=== PATIENT | male | born 1945 | race Caucasian/White ===

== ENCOUNTER 2022-08-13 15:49 | Emergency (ER) | payer OTHER, SELFPAY ==
[2022-08-13 16:12] VITALS: BP 141/87; PULSE 78; RESP 16; TEMP 36.9; O2SAT 100
[2022-08-13 16:30] LABS: Basophils Absolute Auto 0.1 K/mm3 (0.0-0.1); Basophils Percent Auto 0.6 % (0.2-1.2); Eosinophils Absolute Auto 0.1 K/mm3 (0-0.3); Eosinophils Percent Auto 0.7 % (0-4.4); Hematocrit 45.7 % (42.0-52.0); Hemoglobin 14.3 g/dL (14.0-18.0); Immature Granulocyte Absolute 0.06 K/mm3 (0.00-0.031); Immature Granulocyte Percent A 0.7 % (0-0.5); Lymphocytes Absolute Auto 1.85 K/mm3 (0.9-3.2); Lymphocytes Percent Auto 22.2 % (18.3-44.2); Mean Corpuscular HGB Conc 31.3 g/dl (32-36); Mean Corpuscular Hemoglobin 28.4 pg (26-34); Mean Corpuscular Volume 90.7 fl (80-100); Mean Platelet Volume 9.6 fl (7.4-10.4); Monocytes Absolute Auto 0.7 K/mm3 (0.1-0.6); Monocytes Percent Auto 8.5 % (2.6-8.5); Neutrophils Absolute Auto 5.6 K/mm3 (1.3-6.7); Neutrophils Percent Auto 67.3 % (45.5-73.1); Platelet Count Result 314 k/mm3 (150-375); Red Blood Count 5.04 M/mm3 (4.6-6.20); Red Cell Distribution Width 15.9 % (11.5-14.5); White Blood Count 8.3 K/mm3 (4.5-10.0)
[2022-08-13 16:44] LABS: Alanine Aminotransferase 24 U/L (6-50); Albumin Level 4.4 g/dL (3.5-5.1); Alkaline Phosphatase 52 U/L (38-126); Anion Gap 10 mmol/L (8-16); Aspartate Amino Transferase 36 U/L (17-59); Bilirubin,Total 0.4 mg/dL (0.2-1.3); Blood Urea Nitrogen 16 mg/dL (9-20); Calcium 8.8 mg/dL (8.4-10.2); Carbon Dioxide 27 mmol/L (22-30); Chloride 106 mmol/L (98-107); Estimated CRCL calculation 57 ml/min; Estimated Glomerular Filt Rate > 60; Glucose 93 mg/dL (65-110); Lipase 144 U/L (23-300); Potassium 4.9 mmol/L (3.4-5.0); Sodium 143 mmol/L (137-145)
[2022-08-13 20:26] LABS: Add Urine Microscopic? YES; Appearance Urine Clear (Clear); Bilirubin Urine Negative (Negative); Blood Urine Negative (Negative); Color Urine Yellow (Yellow); Glucose Urine UA Negative (Negative); Ketones Urine Negative (Negative); Leukocyte Esterase Ur Negative LEU/UL (Negative); Mucus Urine Rare /lpf; Nitrate Urine Negative (Negative); Protein Urine Negative (Negative); RBC Urine 0-2 /hpf (0-2); WBC Urine 0-3 /hpf
--- NOTE | 2022-08-13 20:44 | ED.ABDPAIN ---
HPI - Abdominal Pain General Chief Complaint: Abdominal Pain Stated Complaint: white bowel movements Time Seen by Provider: 08/13/22 20:04 Source: patient Mode of arrival: ambulatory Limitations: no limitations History of Present Illness HPI narrative: Harika presents complaints of changing color of his stool over the last 4 days. States stool has been white in color and is unsure of the reason why. He denies abdominal pain currently and states he is doing well aside from changing stool color. Denies nausea, vomiting, fever or other complaints at this time. He is alert and very active in the room and appears to be in no distress. Review of Systems Review of Systems: CONSTITUTIONAL: Denies fever, chills, or sweats. EYES: Denies visual changes, redness, or discharge. ENT: Denies rhinorrhea, congestion, sore throat, or otalgia. CARDIOVASCULAR: Denies chest pain, palpitations, or edema. RESPIRATORY: Denies cough or dyspnea. GASTROINTESTINAL: Denies abdominal pain, nausea, vomiting, or diarrhea. Change in the color of stool GENITOURINARY: Denies dysuria or hematuria. SKIN: Denies rash or itching. MUSCULOSKELETAL: Denies back pain, joint pain, or myalgia. NEUROLOGIC: Denies headache, numbness, or weakness. PSYCHIATRIC: Denies anxiety or depression. Exam Narrative: GENERAL: Well-appearing, well-nourished, and in no acute distress. HEAD: Normocephalic, atraumatic. EYES: PERRLA and EOMI. ENT: Nares clear, no rhinorrhea or epistaxis. Mucous membranes moist. NECK: Supple. CHEST: Clear to auscultation. No respiratory distress. HEART: Regular rate and rhythm. No murmur heard. Normal peripheral pulses. ABDOMEN: Soft, nontender, nondistended, normal active bowel sounds. EXTREMITIES: Normal range of motion. No edema. SKIN: Warm, dry, no rash. NEURO: No focal deficits. Alert and oriented x3. PSYCH: Normal mood and affect. Course Vital Signs Vital signs: Vital Signs Temperature 36.9 C 08/13/22 16:12 Pulse Rate 78 08/13/22 16:12 Respiratory Rate 16 08/13/22 16:12 Blood Pressure 141/87 H 08/13/22 16:12 Pulse Oximetry 100 08/13/22 16:12 Oxygen Delivery Room Air 08/13/22 16:12 Temperature 36.9 C 08/13/22 16:12 Pulse Rate 78 08/13/22 16:12 Respiratory Rate 16 08/13/22 16:12 Blood Pressure 141/87 H 08/13/22 16:12 Pulse Oximetry 100 08/13/22 16:12 Oxygen Delivery Room Air 08/13/22 16:12 MDM - Abdominal Pain Lab Data Result diagrams: 08/13/22 16:20 08/13/22 16:20 Labs: Lab Results 08/13/22 08/13/22 08/13/22 Range/Units 16:20 16:20 20:17 WBC 8.3 (4.5-10.0) K/mm3 RBC 5.04 (4.6-6.20) M/mm3 Hgb 14.3 (14.0-18.0) g/dL Hct 45.7 (42.0-52.0) % MCV 90.7 (80-100) fl MCH 28.4 (26-34) pg MCHC 31.3 L (32-36) g/dl RDW 15.9 H (11.5-14.5) % Plt Count 314 (150-375) k/mm3 MPV 9.6 (7.4-10.4) fl Immature Gran % (Auto) 0.7 H (0-0.5) % Neut % (Auto) 67.3 (45.5-73.1) % Lymph % (Auto) 22.2 (18.3-44.2) % [place] % (Auto) 8.5 (2.6-8.5) % Eos % (Auto) 0.7 (0-4.4) % Baso % (Auto) 0.6 (0.2-1.2) % Lymph # (Auto) 1.85 (0.9-3.2) K/mm3 [place] # (Auto) 0.7 H (0.1-0.6) K/mm3 Eos # (Auto) 0.1 (0-0.3) K/mm3 Baso # (Auto) 0.1 (0.0-0.1) K/mm3 Abs Immat Gran (auto) 0.06 H (0.00-0.031) K/mm3 Absolute Neuts (auto) 5.6 (1.3-6.7) K/mm3 Absolute Nucleated RBC 0.0 (0.0-0.012) K/mm3 Nucleated RBC % 0.0 (0.0-0.2) % Sodium 143 (137-145) mmol/L Potassium 4.9 (3.4-5.0) mmol/L Chloride 106 (98-107) mmol/L Carbon Dioxide 27 (22-30) mmol/L Anion Gap 10 (8-16) mmol/L BUN 16 (9-20) mg/dL Creatinine 1.00 (0.7-1.3) mg/dL Estim Creat Clear Calc 57 ml/min Estimated GFR > 60 (59 - ) Glucose 93 (65-110) mg/dL Calcium 8.8 (8.4-10.2) mg/dL Total Bilirubin 0.4 (0.2-1.3) mg/dL AST 36 (17-59) U/L ALT 24 (6-50) U/L Alkaline Phospha
== END 2022-08-13 21:24 | disposition home or self-care (01) ==
PROVIDERS: Emergency Medicine; Emergency Provider Nurse Practitioner
DX: R19.5 Other fecal abnormalities (principal)
CPT/HCPCS: 36415; 80053; 81001; 83690; 85025; 99283

== ENCOUNTER 2022-11-24 14:50 | Emergency (ER) | payer OTHER, SELFPAY ==
--- NOTE | ~2022-11-24 | XR_ITS ---
EXAMINATION: XR chest 2V DATE: 11/24/2022 15:43 INDICATION: Cough and shortness of breath TECHNIQUE: PA and lateral views of the chest are obtained. COMPARISON: None available FINDINGS: The lungs are free of acute opacities. No pleural effusion or pneumothorax. The cardiomedia stinal silhouette is normal. There is moderate thoracic spondylosis. IMPRESSION: 1. No acute cardiopulmonary abnormality. 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
--- NOTE | ~2022-11-24 | XR_ITS ---
EXAM: XR wrist RT min 3V DATE: 11/24/2022 15:43 HISTORY: redness and swelling . COMPARISON: None available. FINDINGS: Decreased mineralization. Old ulnar styloid fracture fragments. No acute fracture or dislo cation. No lytic or blastic lesion. Scattered degenerative changes. No erosion or periosteal change. Mild soft tissue swelling about the wrist. IMPRESSION: No acute osseous finding in the right wrist. Reviewed, dictated and finalized at location K. 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
[2022-11-24 14:54] VITALS: BP 112/79; PULSE 79; RESP 18; TEMP 36.6; O2SAT 100
--- NOTE | 2022-11-24 15:12 | ECG_ITS ---
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
--- NOTE | 2022-11-24 15:15 | ED.EXTPRO ---
HPI - Extremity Problem General Chief complaint: Extremity Problem,Nontraumatic Stated complaint: arm pain Time Seen by Provider: 11/24/22 15:03 History of Present Illness HPI Narrative: 76-year-old male with history of arthritis here for evaluation of bilateral wrist pain for the past day. Patient states that he got up and he noticed that his right wrist was swollen, red and he had difficulty moving the wrist due to pain and stiffness. Also notes body aches all over. He also noticed a productive cough, chest discomfort and dyspnea over the past 3 days. States the pain is there when he lies down. No fevers or chills, nausea or vomiting. Has not taken a COVID test. He is a poor historian and is difficult oriented at times. Related Data Allergies Allergy/AdvReac Type Severity Reaction Status Date / Time acetaminophen Allergy Vomiting Verified 11/24/22 15:58 ibuprofen Allergy Vomiting Verified 11/24/22 15:58 Review of Systems Review of Systems: Gen: Denies fevers or chills Eyes: Denies eye pain or visual change ENT: Denies congestion Respiratory: Reports shortness of breath and cough CV: Reports chest pain. Denies palpitations GI: Reports abdominal pain nausea, emesis or diarrhea denies burning, urgency, frequency or hematuria Musculoskeletal: Reports joint pain. Denies back pain or muscle pain Neuro: Denies numbness, tingling, weakness or focal weakness Skin: Denies rash 10 point review of systems negative, other than as per history of present illness, past medical history and other positives and review of systems Exam Narrative: APPEARANCE: Well appearing, no pain in distress, well-nourished. Head: Normocephalic and atraumatic. EYES: PERRLA/EOMI, conjunctivae clear NOSE: No nasal drainage EARS: External ear normal in appearance THROAT: Oropharynx is clear. Mucous membranes are moist. NECK: Supple. No adenopathy, no masses. RESPIRATORY: Airway patent, respirations nonlabored. Clear to auscultation bilaterally, no rales, rhonchi, wheezing. CARDIOVASCULAR: Regular rate and rhythm without murmurs, rubs, or gallops. ABDOMINAL: Normoactive bowel sounds. Soft, nontender, nondistended. No rebound tenderness or guarding. MUSCULOSKELETAL: Patient's distal ulna on the right is red and warm to palpation, he has no pain with range of motion. Full range of motion in fingers. He has some slight tenderness to the distal radius on the left, again has no pain with range of motion or obvious deformity noted. NEURO: Normal speech. No focal neurologic deficits. SKIN: Skin is warm and dry. No rashes. PSYCHIATRIC: Normal affect/mood.. Course Vital Signs Vital signs: Vital Signs Temperature 97.8 F 11/24/22 14:54 Pulse Rate 79 11/24/22 14:54 Respiratory Rate 18 11/24/22 14:54 Blood Pressure 112/79 11/24/22 14:54 Pulse Oximetry 100 11/24/22 14:54 Oxygen Delivery Room Air 11/24/22 14:54 Temperature 97.8 F 11/24/22 14:54 Pulse Rate 79 11/24/22 14:54 Respiratory Rate 18 11/24/22 14:54 Blood Pressure 112/79 11/24/22 14:54 Pulse Oximetry 100 11/24/22 14:54 Oxygen Delivery Room Air 11/24/22 14:54 MDM - Extremity (Nontraumatic) MDM Narrative Medical decision making narrative: 76-year-old male here for evaluation of multiple medical complaints, most notably some pain and redness in his right wrist. Exam and history not consistent with septic arthritis; likely flare-up of rheumatoid arthritis given presence of morning stiffness. Plain films are negative. He states he has an allergy to ibuprofen and Tylenol, was therefore given aspirin with improvement of his pain. He is also complaining of chest pain and shortness of breath, chest x-ray, EKG, troponin are reassuring. His COVID and flu test are negative. Heart score of 2. We will send home with steroids (possible gout component?) and pcp f/u; return precautions discussed and he voiced understanding. Lab Data 11/24/22 15:23
[2022-11-24 15:38] LABS: Basophils Absolute Auto 0.1 K/mm3 (0.0-0.1); Basophils Percent Auto 0.5 % (0.2-1.2); Eosinophils Absolute Auto 0.2 K/mm3 (0-0.3); Eosinophils Percent Auto 1.7 % (0-4.4); Hematocrit 44.8 % (42.0-52.0); Hemoglobin 14.5 g/dL (14.0-18.0); Immature Granulocyte Absolute 0.04 K/mm3 (0.00-0.031); Immature Granulocyte Percent A 0.4 % (0-0.5); Lymphocytes Absolute Auto 1.75 K/mm3 (0.9-3.2); Lymphocytes Percent Auto 18.1 % (18.3-44.2); Mean Corpuscular HGB Conc 32.4 g/dl (32-36); Mean Corpuscular Hemoglobin 28.3 pg (26-34); Mean Corpuscular Volume 87.3 fl (80-100); Mean Platelet Volume 9.8 fl (7.4-10.4); Monocytes Absolute Auto 1.3 K/mm3 (0.1-0.6); Monocytes Percent Auto 13.4 % (2.6-8.5); Neutrophils Absolute Auto 6.4 K/mm3 (1.3-6.7); Neutrophils Percent Auto 65.9 % (45.5-73.1); Platelet Count Result 320 k/mm3 (150-375); Red Blood Count 5.13 M/mm3 (4.6-6.20); Red Cell Distribution Width 13.5 % (11.5-14.5); White Blood Count 9.7 K/mm3 (4.5-10.0)
[2022-11-24 15:48] LABS: Chloride 104 mmol/L (98-107)
[2022-11-24 16:01] LABS: Troponin I < 0.012 ng/mL (0.000-0.034)
[2022-11-24] MEDS: ASPIRIN 325 MG TABLET PO (16:04)
[2022-11-24 16:12] LABS: Alanine Aminotransferase 22 U/L (6-50); Albumin Level 4.5 g/dL (3.5-5.1); Alkaline Phosphatase 65 U/L (38-126); Anion Gap 5 mmol/L (8-16); Aspartate Amino Transferase 29 U/L (17-59); Bilirubin,Total 0.8 mg/dL (0.2-1.3); Blood Urea Nitrogen 13 mg/dL (9-20); Carbon Dioxide 25 mmol/L (22-30); Estimated CRCL calculation 65 ml/min; Estimated Glomerular Filt Rate > 60; Glucose 98 mg/dL (65-110); Potassium 4.1 mmol/L (3.4-5.0); Sodium 134 mmol/L (137-145)
[2022-11-24 16:15] LABS: Influenza A QL RT-PCR Negative (Negative); Influenza B QL RT-PCR Negative (Negative); SARS-CoV-2 RNA PCR Negative
--- NOTE | 2022-11-25 13:11 | PCCCNOTE ---
[facility] notification called in due to no SSN in the system. Spoke with Camille, provided all details needed, Notification Reference: [id number]
== END 2022-11-24 17:02 | disposition home or self-care (01) ==
PROVIDERS: Emergency Provider Physician Assistant
DX: M19.031 Primary osteoarthritis, right wrist (principal); M19.90 Unspecified osteoarthritis, unspecified site; Z20.822 Contact with and (suspected) exposure to COVID-19; I44.0 Atrioventricular block, first degree
CPT/HCPCS: 36415; 71046; 73110; 80053; 84484; 85025; 87636; 93005; 99284; A9270